=== PATIENT | female | born 1990 | race Caucasian/White ===

== ENCOUNTER 2022-03-29 15:23 | Inpatient (IN) | payer OTHER ==
[2022-03-29] MEDS ORDERED: SODIUM CHLORIDE 0.9% 1,000 ML IV STA (15:54)
[2022-03-29] MEDS ORDERED: THIAMINE 100 MG/ML 2 ML VIAL IM STA (15:58)
[2022-03-29] MEDS ORDERED: LORazepam 2 MG/ML INJ IV PRN (15:58)
[2022-03-29] MEDS: LORazepam 2 MG/ML INJ IV PRN ×7 (16:19→23:59)
[2022-03-29 16:34] LABS: HGB 11.4 gm/dL (11.4-16.0); MCH 35.2 pg (25.0-35.0); MCHC 34.6 g/dL (31.0-37.0); MCV 101.6 fL (80.0-100.0); Mean Platelet Volume 7.9; RBC 3.25 m/uL (3.80-5.40); RDW 12.3 % (11.5-15.5); WBC 5.7 k/uL (3.8-10.6)
[2022-03-29 16:45] LABS: ALT 73 U/L (4-34); AST 364 U/L (14-36); African American GFR (CKD) >90 (>60 ml/min/1.73 sqM); Albumin 3.9 g/dL (3.5-5.0); Alcohol <10 mg/dL; Alkaline Phosphatase 461 U/L (38-126); Amylase 51 U/L (30-110); Anion Gap 8 mmol/L; Blood Urea Nitrogen 10 mg/dL (7-17); Calcium 8.5 mg/dL (8.4-10.2); Carbon Dioxide 34 mmol/L (22-30); Chloride 88 mmol/L (98-107); Glucose 102 mg/dL (74-99); Lipase 230 U/L (23-300); Magnesium 1.2 mg/dL (1.6-2.3); Non-African American GFR(CKD) >90 (>60 ml/min/1.73 sqM); Phosphorus 2.6 mg/dL (2.5-4.5); Sodium 130 mmol/L (137-145); Total Protein 7.5 g/dL (6.3-8.2)
--- NOTE | 2022-03-29 16:47 | ED ---
Alcohol HPI - General Source: patient, EMS, RN notes reviewed Mode of arrival: EMS Limitations: no limitations - History of Present Illness MD Complaint: alcohol withdrawal Time Since Last Drink: 1 -: days(s) Previous Visits for Alcohol Intoxication?: No <Bindu Block - Last Filed: 03/29/22 20:30> <uDran Shook - Last Filed: 03/29/22 20:31> - General Chief Complaint: Alcohol Stated Complaint: hallucinations Time Seen by Provider: 03/29/22 15:35 - History of Present Illness Initial Comments: This is a 32-year-old female who presents to the emergency department for hallucinations. Patient was sent in from [place] for alcohol withdrawal hallucinations. She was being managed there with their alcohol withdrawal protocol, however the hallucinations continued to persist and seemed to be increasing in severity. She then became agitated, prompting her transfer to the emergency department. States that her last drink was yesterday. Nursing staff here noted her to be actively hallucinating in the examination room. When I went to examine the patient, she was intermittently seeing other people in the examination room and would occasionally think the nursing staff are her mother. She is also very agitated. Denies any fevers, chills, sore throat, cough, dyspnea, chest pain, palpitations, abdominal pain, nausea, vomiting, diarrhea, back pain, or headaches. (Bindu Block) - Related Data Home Medications Medication Instructions Recorded Confirmed Acetaminophen [Tylenol 8 Hour] 650 mg PO Q4H PRN 03/29/22 03/29/22 Calc/Mag/Zinc/Jocelynn D 1 tab PO TID PRN 03/29/22 03/29/22 Chlorpheniramine Maleate 4 mg PO Q4H PRN 03/29/22 03/29/22 [Chlor-Trimeton] Hyoscyamine Sulfate [Levsin] 0.125 mg PO QID PRN 03/29/22 03/29/22 LORazepam [Ativan] 1 - 2 mg PO Q4H 03/29/22 03/29/22 Loperamide HCl [Imodium A-D] 4 mg PO QID PRN 03/29/22 03/29/22 Multivitamins, Thera [Multivitamin 1 tab PO DAILY 03/29/22 03/29/22 (formulary)] Thiamine [Vitamin B-1] 100 mg PO DAILY 03/29/22 03/29/22 Tigan 200mg/Ml 200 mg IM Q6H PRN 03/29/22 03/29/22 cloNIDine HCL [Catapres] 0.1 mg PO Q4H PRN 03/29/22 03/29/22 ondansetron HCL [Zofran] 8 mg PO Q6H PRN 03/29/22 03/29/22 traZODone HCL [Desyrel] 50 - 150 mg PO HS PRN 03/29/22 03/29/22 Allergies Allergy/AdvReac Type Severity Reaction Status Date / Time NSAIDS (Non-Steroidal Allergy Anaphylaxis Verified 03/29/22 20:09 Anti-Inflamma Review of Systems ROS Other: All systems not noted in ROS Statement are negative. <Bindu Block - Last Filed: 03/29/22 20:30> ROS Other: All systems not noted in ROS Statement are negative. <Duran Shook - Last Filed: 03/29/22 20:31> ROS Statement: Those systems with pertinent positive or pertinent negative responses have been documented in the HPI. Past Medical History Past Medical History: Unable to Obtain History of Any Multi-Drug Resistant Organisms: None Reported Past Surgical History: Unable to Obtain Past Psychological History: Anxiety Smoking Status: Current every day smoker Past Alcohol Use History: Abuse, Daily <Bindu Block - Last Filed: 03/29/22 20:30> General Exam Limitations: no limitations General appearance: alert, in no apparent distress Head exam: Present: atraumatic, normocephalic, normal inspection Respiratory exam: Present: normal lung sounds bilaterally. Absent: respiratory distress, wheezes, rales, rhonchi, stridor Cardiovascular Exam: Present: normal rhythm, tachycardia, normal heart sounds Neurological exam: Present: alert, oriented X3, CN II-XII intact Psychiatric exam: Present: agitated. Absent: homicidal ideation, suicidal dariel ation Skin exam: Present: warm, dry, intact, normal color. Absent: rash <Bindu Block - Last Filed: 03/29/22 20:30> Course Vital Signs 03/29/22 15:32 Temperature 99.0 F Pulse Rate 140 H Respiratory 18 Rate Blood Pressure 145/119 O2 Sat by Pulse 97 Oximetry Procedures - Restraint - Face to Face Restraint Occurrence 1 Patient's Immediate Situation: Endangers self safety, Endangers others' safety, Endangers staff safety, Violent behavior Patient's Reaction to the Intervention: Angry Patient's Medical & Behavioral Condition: Awake, Agitated Need to Continue or Terminate Restraint or Seclusion: Continue Face to Face Eval of Restraint Date: 03/29/22 Face to Face Eval of Restraint Time: 20:35 <Duran Shook - Last Filed: 03/29/22 20:31> Medical Decision Making - Lab Data Result diagrams: 03/29/22 16:11 03/29/22 16:11 <Bindu Block - Last Filed: 03/29/22 20:30> - Lab Data Result diagrams: 03/29/22 16:11 03/29/22 16:11 <Duran Shook - Last Filed: 03/29/22 20:31> - Medical Decision Making This is a 32-year-old female who presents to the emergency department for alcohol withdrawals. Was pt. sent in by a medical professional or institution? @ -[facility] Did you speak to anyone other than the patient for history? @ -[facility] Did you review nursing and triage notes? @ -Yes, and I agree, it is accurate with regards to the patient's symptoms. Were old charts reviewed? @ -No Differential Diagnosis? @ -Differential Hallucinations Alcohol withdrawals, polysubstance abuse, acute psychosis, schizophrenia, sepsis, brain lesion, this is not meant to be an all-inclusive list. What testing was considered but not performed? (CT, X-rays, U/S, labs)? Why? @ -None What meds were considered but not given? Why? @ -None Did you discuss the management of the patient with other professionals? @ -Yes, Dr. Mercedes, who accepts the patient for admission. Did you reconcile home meds? @ -No Was smoking cessation discussed for >3mins.? @ -I discussed smoking cessation for greater than 3 minutes. The risk of smoking were discussed with the patient including but not limited to risks of cancer, stroke, coronary artery disease and COPD. Also discussed with patient were multiple methods of quitting smoking. Lastly we discussed the financial cost of smoking. Was critical care preformed (if so, how long)? @ -No Were there social determinants of health that impacted care today? How? (Homelessness, low income, unemployed, alcoholism, drug addiction, transportation, low edu. Level, literacy, decrease access to med. care, alf, rehab)? @ -Alcoholism Was there de-escalation of care discussed even if they declined? (Discuss DNR or withdrawal of care, Hospice)? @ -No What co-morbidities impacted this encounter? (DM, HTN, Smoking, COPD, CAD, Cancer, CVA, Hep., AIDS, mental health diagnosis, sleep apnea, morbid obesity)? @ -Alcoholism Was patient admitted / discharged? @ -Lab work obtained revealing thrombocytopenia and multiple electrolyte irregularities such as hyponatremia, hypokalemia, and hypomagnesemia. Additionally, she has significantly elevated liver enzymes. No prior values are available for comparison. She was given IV fluids, 40 mEq of K-Dur and 400 mg of magnesium oxide. CIWA protocol was initiated. Patient admitted to medicine for alcohol withdrawal hallucinations. Undiagnosed new problem with uncertain prognosis? @ -None Drug Therapy requiring intensive monitoring for toxicity (Heparin, Nitro, Insulin, Cardizem)? @ -None Were any procedures done? @ -None Diagnosis/symptom? @ -Alcohol Withdrawal Hallucinations Acute, or Chronic, or Acute on Chronic? @ -Acute Uncomplicated (without systemic symptoms) or Complicated (systemic symptoms)? @ -Complicated Side effects of treatment? @ -None Exacerbation, Progression, or Severe Exacerbation] @ -Not applicable Poses a threat to life or bodily function? @ -Yes This case was discussed in detail with the attending ED physician, Dr. East. Presentation, findings, and treatment plan discussed in detail as well. (Bindu Block) - Lab Data Lab Results 03/29/22 03/29/22 03/29/22 Range/Units 16:11 16:11 16:11 WBC 5.7 (3.8-10.6) k/uL RBC 3.25 L (3.80-5.40) m/uL Hgb 11.4 (11.4-16.0) gm/dL Hct 33.0 L (34.0-46.0) % MCV 101.6 H (80.0-100.0) fL MCH 35.2 H (25.0-35.0) pg MCHC 34.6 (31.0-37.0) g/dL RDW 12.3 (11.5-15.5) % Plt Count 78 L (150-450) k/uL MPV 7.9 Neutrophils % (Manual) 80 % Band Neuts % (Manual) 1 % Lymphocytes % (Manual) 14 % Monocytes % (Manual) 5 % Neutrophils # (Manual) 4.60 (1.3-7.7) k/uL Lymphocytes # (Manual) 0.80 L (1.0-4.8) k/uL Monocytes # (Manual) 0.29 (0-1.0) k/uL Nucleated RBCs 0 (0-0) /100 WBC Manual Slide Review Performed RBC Morphology Normal Sodium 130 L (137-145) mmol/L Potassium 3.0 L (3.5-5.1) mmol/L Chloride 88 L (98-107) mmol/L Carbon Dioxide 34 H (22-30) mmol/L Anion Gap 8 mmol/L BUN 10 (7-17) mg/dL Creatinine 0.54 (0.52-1.04) mg/dL Est GFR (CKD-EPI)AfAm >90 (>60 ml/min/1.73 sqM) Est GFR (CKD-EPI)NonAf >90 (>60 ml/min/1.73 sqM) Glucose 102 H (74-99) mg/dL Calcium 8.5 (8.4-10.2) mg/dL Phosphorus 2.6 (2.5-4.5) mg/dL Magnesium 1.2 L (1.6-2.3) mg/dL Total Bilirubin 2.0 H (0.2-1.3) mg/dL AST 364 H (14-36) U/L ALT 73 H (4-34) U/L Alkaline Phosphatase 461 H (38-126) U/L Total Protein 7.5 (6.3-8.2) g/dL Albumin 3.9 (3.5-5.0) g/dL Amylase 51 (30-110) U/L Lipase 230 (23-300) U/L Urine HCG, Qual Not Detected (Not Detectd) Serum Alcohol <10 mg/dL Disposition <Bindu Block - Last Filed: 03/29/22 20:30> <Duran Shook Filed: 03/29/22 20:31> Clinical Impression: Alcohol withdrawal hallucinosis, Hyponatremia Disposition: ADMITTED IP TO THIS HOSP Referrals: None,Stated [Primary Care Provider] - 1-2 days
[2022-03-29 17:32] LABS: Band Neutrophils % 1 %; Monocytes # (M) 0.29 k/uL (0-1.0); Neutrophils % (M) 80 %; Nucleated Red Blood Cells 0 /100 WBC (0-0); RBC Morphology Normal; Total Cells Counted 100
[2022-03-29 17:33] LABS: Platelet Count 78 k/uL (150-450)
[2022-03-29] MEDS ORDERED: MAGNESIUM OXIDE 400 MG TAB PO STA (17:45)
[2022-03-29] MEDS ORDERED: POTASSIUM CHLORIDE ER 20 MEQ TAB.ER PO STA (17:45)
[2022-03-29] MEDS ORDERED: NICOTINE 21MG/24HR PATCH TRANSDERM STA (18:02)
[2022-03-29] MEDS ORDERED: ONDANSETRON 4 MG/2 ML VIAL IVP PRN (19:25)
[2022-03-29] MEDS ORDERED: NALOXONE 0.4 MG/ML 1 ML VIAL IV PRN (19:25)
[2022-03-29] MEDS ORDERED: KETOROLAC 15 MG/ML 1 ML VIAL IVP PRN (19:25)
[2022-03-29] MEDS ORDERED: IBUPROFEN 400 MG TAB PO PRN (19:25)
[2022-03-29] MEDS ORDERED: chlordiazePOXIDE 25 MG CAP PO STA (19:56)
[2022-03-29] MEDS: MAGNESIUM SULFATE-D5W PMX 1 GM in DEXTROSE/WATER 1 100ML.BAG IVPB SCH ×2 (21:09→23:58)
[2022-03-29] MEDS ORDERED: HALOPERIDOL LACTATE 5 MG/ML 1 ML VIAL IM PRN (21:10)
[2022-03-29] MEDS ORDERED: LORazepam 2 MG/ML INJ IM STA (21:10)
[2022-03-29] MEDS ORDERED: diphenhydrAMINE 50 MG/ML 1 ML VIAL IM STA (21:10)
[2022-03-30 00:37] LABS: Amphetamine Screen,Urine Not Detected (NotDetected); Barbiturate Screen,Urine Not Detected (NotDetected); Benzodiazepines Screen,Urine Detected (NotDetected); Cocaine Screen,Urine Not Detected (NotDetected); Methadone Screen, Urine Not Detected (NotDetected); Opiate Screen,Urine Not Detected (NotDetected); Oxycodone Screen, Urine Not Detected (NotDetected); Phencyclidine Screen,Urine Not Detected (NotDetected); Tricyclic Antidepressant,Urine Not Detected (NotDetected); Urn Cannabinoid Scrn Detected (NotDetected)
[2022-03-30 00:39] LABS: Appearance,Urine Clear (Clear); Bacteria,Urine Few /hpf; Bilirubin,Urine Negative (Negative); Blood,Urine Negative (Negative); Color,Urine Light Yellow; Glucose,Urine (UA) Negative (Negative); Ketones,Urine Negative (Negative); Leukocyte Esterase,Urine Large (Negative); Nitrite,Urine Negative (Negative); Protein,Urine Negative (Negative); RBC,Urine 1 /hpf (0-5); Specific Gravity,Urine 1.005 (1.001-1.035); Squamous Epithelial Cell,Urine <1 /hpf (0-4); Urobilinogen,Urine <2.0 mg/dL (<2.0); WBC,Urine 58 /hpf (0-5)
[2022-03-30 00:57] LABS: Glucose,Whole Blood 118 mg/dL (70-110)
--- NOTE | 2022-03-30 01:56 | P.HPIM ---
History of Present Illness H&P Date: 03/29/22 Chief Complaint: hallucinations, ETOH withdrawal 32 year old female with alcohol dependance patient is a transfer from [facility], she was there for alcohol detox, last drink yesterday, however it is reported that she started having bad hallucinations, and was sent in here for further treatment . patient herself is unable to provide any meaningful history, when approached , she is in 4 point restraints , starts crying and seeing things. history obtained by talking to ED staff, and reviewing chart blood work showed macrocytosis no anemia, low platelet count most likely secondary to ETOH, unknown if has history of hepatitis , unknown if she has history of drug abuse, Low Mg, low K, low Na, elevated liver enzymes and ALP possibly secondary to alcohol abuse , liver US pending , lipase unremarkable Review of Systems ROS unobtainable: due to mental status Past Medical History Past Medical History: Unable to Obtain History of Any Multi-Drug Resistant Organisms: None Reported Past Surgical History: Unable to Obtain Past Psychological History: Anxiety Smoking Status: Current every day smoker Past Alcohol Use History: Abuse, Daily - Past Family History family Family Medical History: Unable to Obtain Medications and Allergies Home Medications Medication Instructions Recorded Confirmed Type Acetaminophen [Tylenol 8 Hour] 650 mg PO Q4H PRN 03/29/22 03/29/22 History Calc/Mag/Zinc/Jocelynn D 1 tab PO TID PRN 03/29/22 03/29/22 History Chlorpheniramine Maleate 4 mg PO Q4H PRN 03/29/22 03/29/22 History [Chlor-Trimeton] Hyoscyamine Sulfate [Levsin] 0.125 mg PO QID PRN 03/29/22 03/29/22 History LORazepam [Ativan] 1 - 2 mg PO Q4H 03/29/22 03/29/22 History Loperamide HCl [Imodium A-D] 4 mg PO QID PRN 03/29/22 03/29/22 History Multivitamins, Thera [Multivitamin 1 tab PO DAILY 03/29/22 03/29/22 History (formulary)] Thiamine [Vitamin B-1] 100 mg PO DAILY 03/29/22 03/29/22 History Tigan 200mg/Ml 200 mg IM Q6H PRN 03/29/22 03/29/22 History cloNIDine HCL [Catapres] 0.1 mg PO Q4H PRN 03/29/22 03/29/22 History ondansetron HCL [Zofran] 8 mg PO Q6H PRN 03/29/22 03/29/22 History traZODone HCL [Desyrel] 50 - 150 mg PO HS PRN 03/29/22 03/29/22 History Allergies Allergy/AdvReac Type Severity Reaction Status Date / Time NSAIDS (Non-Steroidal Allergy Anaphylaxis Verified 03/29/22 20:09 Anti-Inflamma Physical Exam Vitals: Vital Signs Temp Pulse Resp BP Pulse Ox 03/30/22 01:00 97.6 F 96 12 114/84 97 03/30/22 00:48 96 16 03/29/22 23:00 99 16 120/87 98 03/29/22 21:48 102 H 18 139/92 99 03/29/22 15:32 99.0 F 140 H 18 145/119 97 Intake and Output 03/29/22 03/29/22 03/30/22 14:59 22:59 06:59 Intake Total 1100 100 Output Total 75 225 Balance 1025 -125 Intake: Intake, IV Titration 1100 100 Amount Magnesium Sulfate-D5w Pmx 100 100 1 gm In Dextrose/Water 1 100ml.bag @ 100 mls/hr IVPB Q1H [facility] Rx#: [id number] Sodium Chloride 0.9% 1, 1000 000 ml @ 999 mls/hr IV . Q1H1M [facility] Rx#:[id number] Output: Urine 75 225 Other: # Voids 1 Weight 49.442 kg Constitutional: agitated , restless , hallucinating Eyes: Anicteric sclerae, moist conjunctiva, Pupils equal round reactive to light ENMT: NC/AT unable to examine the mouth properly Neck: resisting exam , no masses, or JVD No carotid bruits No thyromegaly Lungs: Clear to auscultation Clear to percussion Normal respiratory effort, no accessory muscle use Cardiovascular: Heart tachycardia No murmurs, gallops, or rubs No peripheral edema Abdominal: Soft Nontender, no guarding, rebound or rigidity Abdomen moving with respiration Normoactive bowel sounds Skin: Normal temperature, tone, texture, turgor Extremities: No digital cyanosis No clubbing Pedal pulses intact and symmetrical Radial pulses intact and symmetrical No calf tenderness Psychiatric: Alert, confused , agitated , hallucinating Neuro moving all 4 extremities, currently in restraints , unable to do full neuro exam due patient mental status Lymphatics: no palpable cervical or supraclavicular lymph nodes Results CBC & Chem 7: 03/29/22 16:11 03/29/22 16:11 Labs: Abnormal Lab Results - Last 24 Hours (Table) 03/29/22 03/29/22 03/30/22 Range/Units 16:11 16:11 00:08 RBC 3.25 L (3.80-5.40) m/uL Hct 33.0 L (34.0-46.0) % MCV 101.6 H (80.0-100.0) fL MCH 35.2 H (25.0-35.0) pg Plt Count 78 L (150-450) k/uL Lymphocytes # (Manual) 0.80 L (1.0-4.8) k/uL Sodium 130 L (137-145) mmol/L Potassium 3.0 L (3.5-5.1) mmol/L Chloride 88 L (98-107) mmol/L Carbon Dioxide 34 H (22-30) mmol/L Glucose 102 H (74-99) mg/dL POC Glucose (mg/dL) (70-110) mg/dL Magnesium 1.2 L (1.6-2.3) mg/dL Total Bilirubin 2.0 H (0.2-1.3) mg/dL AST 364 H (14-36) U/L ALT 73 H (4-34) U/L Alkaline Phosphatase 461 H (38-126) U/L Ur Leukocyte Esterase (Negative) Urine WBC (0-5) /hpf Urine Bacteria (None) /hpf U Benzodiazepines Scrn Detected H (NotDetected) U Marijuana (THC) Screen Detected H (NotDetected) 03/30/22 03/30/22 Range/Units 00:08 00:53 RBC (3.80-5.40) m/uL Hct (34.0-46.0) % MCV (80.0-100.0) fL MCH (25.0-35.0) pg Plt Count (150-450) k/uL Lymphocytes # (Manual) (1.0-4.8) k/uL Sodium (137-145) mmol/L Potassium (3.5-5.1) mmol/L Chloride (98-107) mmol/L Carbon Dioxide (22-30) mmol/L Glucose (74-99) mg/dL POC Glucose (mg/dL) 118 H (70-110) mg/dL Magnesium (1.6-2.3) mg/dL Total Bilirubin (0.2-1.3) mg/dL AST (14-36) U/L ALT (4-34) U/L Alkaline Phosphatase (38-126) U/L Ur Leukocyte Esterase Large H (Negative) Urine WBC 58 H (0-5) /hpf Urine Bacteria Few H (None) /hpf U Benzodiazepines Scrn (NotDetected) U Marijuana (THC) Screen (NotDetected) Assessment and Plan Assessment: hallucination and autonomic dysfunction with tachycardia , and elevated blood pressure patient clearly in DTs alcohol withdrawal syndrome supportive care IVF hydration with normal saline benzo per CIWA admission to ICU thiamine daily seizure precautions elevated liver enzymes , secondary to alcohol abuse unknown if history of drug abuse check Liver US rule out other pathology follow up liver enzymes check hepatitis panel thrombocytopenia , secondary to alcohol abuse no evidence of bleeding monitor macrocytosis with no anemia multivitamine thiamin electrolyte imbalance IVF normal saline replace Mg and K and follow up levels full code DVT PPx mechanical
[2022-03-30] MEDS: SODIUM CHLORIDE 0.9% 1,000 ML IV SCH ×2 (02:13→17:23)
[2022-03-30] MEDS: LORazepam 2 MG/ML INJ IV PRN ×3 (03:06→06:30)
[2022-03-30 04:35] LABS: Basophils % (A) 0 %; Eosinophils # (A) 0.1 k/uL (0-0.7); Eosinophils % (A) 3 %; HCT 28.2 % (34.0-46.0); Lymphocytes # (A) 0.9 k/uL (1.0-4.8); Lymphocytes % (A) 21 %; MCH 35.3 pg (25.0-35.0); MCHC 34.1 g/dL (31.0-37.0); MCV 103.4 fL (80.0-100.0); Macrocytosis Slight; Mean Platelet Volume 8.8; Monocytes # (A) 0.2 k/uL (0-1.0); Monocytes % (A) 4 %; Neutrophils % (A) 71 %; RBC 2.73 m/uL (3.80-5.40); RDW 12.4 % (11.5-15.5); WBC 4.3 k/uL (3.8-10.6)
[2022-03-30 04:48] LABS: ALT 61 U/L (4-34); AST 264 U/L (14-36); African American GFR (CKD) >90 (>60 ml/min/1.73 sqM); Alkaline Phosphatase 346 U/L (38-126); Anion Gap 2 mmol/L; Blood Urea Nitrogen 5 mg/dL (7-17); Calcium 7.8 mg/dL (8.4-10.2); Carbon Dioxide 32 mmol/L (22-30); Chloride 101 mmol/L (98-107); Glucose 84 mg/dL (74-99); Magnesium 1.9 mg/dL (1.6-2.3); Non-African American GFR(CKD) >90 (>60 ml/min/1.73 sqM); Potassium 3.4 mmol/L (3.5-5.1); Sodium 135 mmol/L (137-145); Total Bilirubin 1.7 mg/dL (0.2-1.3); Total Protein 5.9 g/dL (6.3-8.2)
[2022-03-30 04:56] LABS: HGB 9.6 gm/dL (11.4-16.0); Platelet Count 59 k/uL (150-450)
[2022-03-30] MEDS ORDERED: Potassium Replacement Protocol 1 EACH MISC MISCELLANE PRN (07:04)
[2022-03-30] MEDS ORDERED: Magnesium Replacement Protocol 1 EACH MISC MISCELLANE PRN ×2 (07:08→07:13)
--- NOTE | 2022-03-30 08:18 | US ---
EXAMINATION TYPE: US liver DATE OF EXAM: 03/30/2022 COMPARISON: NONE CLINICAL HISTORY: elevated liver enz, elevated ALP, ETOH. ETOH withdrawals TECHNIQUE: Multiple sonographic images of the right upper quadrant are obtained. FINDINGS: EXAM MEASUREMENTS: Liver Length: 20.8 cm Gallbladder Wall: 0.4 cm CBD: 0.4 cm Right Kidney: 12.2 x 4.8 x 5.8 cm [employer] REPRESENTATIVE NOTES: Unresponsive, immobile ICU pt Pancreas: ?hypoechoic lesion at tail vs. bowel= 4.1 x 2.8 x 4.4 cm Liver: Enlarged, heterogeneous, echogenic Gallbladder: Wall thickened Evidence for sonographic Cabrera's sign: No CBD: wnl Right Kidney: lower pole gassed out, no evidence of hydro IMPRESSION: 1. Hepatomegaly. 2. Limitation on the examination. A pancreatic tail cyst versus bowel loop immediately present. Addit ional workup with CT would be recommended. 3. Thickened gallbladder wall
[2022-03-30] MEDS: PANTOPRAZOLE 40 MG/10 ML VIAL IV SCH (08:45)
[2022-03-30] MEDS: DEXMEDETOMIDINE/0.9% NACL(PMX) 400 MCG in EMPTY BAG 1 BAG IV SCH ×2 (08:57→17:23)
[2022-03-30 09:43] LABS: Hepatitis A Antibody IgM Nonreactive (Nonreactive); Hepatitis B Core IgM Nonreactive (Nonreactive); Hepatitis B Surface Antigen Nonreactive (Nonreactive); Hepatitis C IgG Antibody Reactive (Nonreactive)
--- NOTE | 2022-03-30 09:59 | P.PN ---
Subjective Progress Note Date: 03/30/22 Hospital Course: 32-year-old female with history of alcohol dependence presenting from [place] [facility] with delirium tremens. Patient has been tachycardic and tachypneic, with a normal blood pressure, saturating well on room air. Laboratory workup significant for macrocytic anemia, mild hyponatremia, mild hypokalemia, transaminitis, hypomagnesemia. Patient admitted to the ICU for further management. Subjective: Patient seen and examined at bedside. No acute events overnight. Continues to remain in 2-point restraints, sitter at bedside. Patient being aggressive and combative and like to get out of the hospitalization as soon as possible. She claims that she is been through this multiple times, and does not think she needs any treatment at the moment. She denies any chest pain, shortness of breath, abdominal pain, nausea, vomiting, or bowel issues. Currently has a urinary catheter. Pertinent positives and negatives as discussed above, a complete review of sys tems was performed and all other systems are negative. Vitals Signs Reviewed. General: nontoxic, mild distress, agitated, appears at stated age Derm: warm, dry Head: atraumatic, normocephalic, symmetric Eyes: EOMI, no lid lag, anicteric sclera Mouth: no lip lesion, mucus membranes moist Cardiovascular: S1S2 reg, tachycardic, no murmur Lungs: CTA bilateral, no rhonchi, no rales , no accessory muscle use Abdominal: soft, nontender to palpation, no guarding, no appreciable organomegaly Ext: no gross muscle atrophy, no edema, no contractures Neuro: CN II-XI grossly intact, no focal neuro deficits Psych: Alert, oriented, combative Assessment and Plan: Delirium tremens Sinus tachycardia Acute alcohol withdrawal syndrome - Benzo per CIWA - Thiamine - Seizure precautions - I's consulted Transaminitis Elevated bilirubin History of prior hep C infection -Liver ultrasound showed hepatomegaly, possible pancreatic tail cyst versus problem, and thickened gallbladder wall -Hep C RNA level pending -Transaminitis likely in the setting of alcohol use Macrocytic anemia Thrombocytopenia -Likely from alcohol use Hypokalemia -Replete and monitor Mild hyponatremia - resolving, continue IV fluids Hypomagnesemia - resolved DVT ppx: Lovenox Code status: Full code Anticipated discharge place: Back to [facility] Anticipated discharge time: Pending clinical course Objective - Vital Signs Vital signs: Vital Signs Temp 97.6 F 03/30/22 01:00 Pulse 158 H 03/30/22 09:00 Resp 14 03/30/22 09:00 BP 133/82 03/30/22 09:00 Pulse Ox 96 03/30/22 09:00 FiO2 Intake & Output 03/29/22 03/30/22 03/30/22 18:59 06:59 18:59 Intake Total 1725 150.385 Output Total 655 70 Balance 1070 80.385 Weight 49.442 kg 51.3 kg Intake: Intake, IV Titration 1725 150.385 Amount Dexmedetomidine/0.9% NaCl 0.385 (Pmx) 400 mcg In Empty Bag 1 bag @ 0.2 MCG/KG/HR 2.565 mls/hr IV .Q24H [facility] Rx#:[id number] Magnesium Sulfate-D5w Pmx 200 1 gm In Dextrose/Water 1 100ml.bag @ 100 mls/hr IVPB Q1H [facility] Rx#: [id number] Sodium Chloride 0.9% 1, 525 150 000 ml @ 75 mls/hr IV . [id number] [facility] Rx#:[id number] Sodium Chloride 0.9% 1, 1000 000 ml @ 999 mls/hr IV . Q1H1M [facility] Rx#:[id number] Output: Urine 655 70 Other: Voiding Method Indwelling Catheter # Voids 1 - Labs CBC & Chem 7: 03/30/22 04:10 03/30/22 04:10 Labs: Abnormal Lab Results - Last 24 Hours (Table) 03/29/22 03/29/22 03/30/22 Range/Units 16:11 16:11 00:08 RBC 3.25 L (3.80-5.40) m/uL Hgb (11.4-16.0) gm/dL Hct 33.0 L (34.0-46.0) % MCV 101.6 H (80.0-100.0) fL MCH 35.2 H (25.0-35.0) pg Plt Count 78 L (150-450) k/uL Lymphocytes # (1.0-4.8) k/uL Lymphocytes # (Manual) 0.80 L (1.0-4.8) k/uL Sodium 130 L (137-145) mmol/L Potassium 3.0 L (3.5-5.1) mmol/L Chloride 88 L (98-107) mmol/L Carbon Dioxide 34 H (22-30) mmol/L BUN (7-17) mg/dL Creatinine (0.52-1.04) mg/dL Glucose 102 H (74-99) mg/dL POC Glucose (mg/dL) (70-110) mg/dL Calcium (8.4-10.2) mg/dL Magnesium 1.2 L (1.6-2.3) mg/dL Total Bilirubin 2.0 H (0.2-1.3) mg/dL AST 364 H (14-36) U/L ALT 73 H (4-34) U/L Alkaline Phosphatase 461 H (38-126) U/L Total Protein (6.3-8.2) g/dL Albumin (3.5-5.0) g/dL Ur Leukocyte Esterase (Negative) Urine WBC (0-5) /hpf Urine Bacteria (None) /hpf U Benzodiazepines Scrn Detected H (NotDetected) U Marijuana (THC) Screen Detected H (NotDetected) Hep C IgG Ab (Nonreactive) 03/30/22 03/30/22 03/30/22 Range/Units 00:08 00:53 04:10 RBC 2.73 L (3.80-5.40) m/uL Hgb 9.6 L D (11.4-16.0) gm/dL Hct 28.2 L (34.0-46.0) % MCV 103.4 H (80.0-100.0) fL MCH 35.3 H (25.0-35.0) pg Plt Count 59 L (150-450) k/uL Lymphocytes # 0.9 L (1.0-4.8) k/uL Lymphocytes # (Manual) (1.0-4.8) k/uL Sodium (137-145) mmol/L Potassium (3.5-5.1) mmol/L Chloride (98-107) mmol/L Carbon Dioxide (22-30) mmol/L BUN (7-17) mg/dL Creatinine (0.52-1.04) mg/dL Glucose (74-99) mg/dL POC Glucose (mg/dL) 118 H (70-110) mg/dL Calcium (8.4-10.2) mg/dL Magnesium (1.6-2.3) mg/dL Total Bilirubin (0.2-1.3) mg/dL AST (14-36) U/L ALT (4-34) U/L Alkaline Phosphatase (38-126) U/L Total Protein (6.3-8.2) g/dL Albumin (3.5-5.0) g/dL Ur Leukocyte Esterase Large H (Negative) Urine WBC 58 H (0-5) /hpf Urine Bacteria Few H (None) /hpf U Benzodiazepines Scrn (NotDetected) U Marijuana (THC) Screen (NotDetected) Hep C IgG Ab (Nonreactive) 03/30/22 03/30/22 Range/Units 04:10 04:10 RBC (3.80-5.40) m/uL Hgb (11.4-16.0) gm/dL Hct (34.0-46.0) % MCV (80.0-100.0) fL MCH (25.0-35.0) pg Plt Count (150-450) k/uL Lymphocytes # (1.0-4.8) k/uL Lymphocytes # (Manual) (1.0-4.8) k/uL Sodium 135 L (137-145) mmol/L Potassium 3.4 L (3.5-5.1) mmol/L Chloride (98-107) mmol/L Carbon Dioxide 32 H (22-30) mmol/L BUN 5 L (7-17) mg/dL Creatinine 0.41 L (0.52-1.04) mg/dL Glucose (74-99) mg/dL POC Glucose (mg/dL) (70-110) mg/dL Calcium 7.8 L (8.4-10.2) mg/dL Magnesium (1.6-2.3) mg/dL Total Bilirubin 1.7 H (0.2-1.3) mg/dL AST 264 H (14-36) U/L ALT 61 H (4-34) U/L Alkaline Phosphatase 346 H (38-126) U/L Total Protein 5.9 L (6.3-8.2) g/dL Albumin 3.0 L (3.5-5.0) g/dL Ur Leukocyte Esterase (Negative) Urine WBC (0-5) /hpf Urine Bacteria (None) /hpf U Benzodiazepines Scrn (NotDetected) U Marijuana (THC) Screen (NotDetected) Hep C IgG Ab Reactive A (Nonreactive)
[2022-03-30] MEDS: NICOTINE 21MG/24HR PATCH TRANSDERM SCH (10:08)
[2022-03-30] MEDS: THIAMINE 100 MG TAB PO SCH (10:30)
[2022-03-30] MEDS: POTASSIUM CHLORIDE 10 MEQ in WATER FOR INJECTION 1 100ML.BAG IVPB SCH ×4 (10:48→15:31)
[2022-03-30] MEDS: MAGNESIUM SULFATE-D5W PMX 1 GM in DEXTROSE/WATER 1 100ML.BAG IVPB SCH ×2 (12:36→13:56)
[2022-03-30] MEDS ORDERED: HALOPERIDOL LACTATE 5 MG/ML 1 ML VIAL IM PRN (12:39)
--- NOTE | 2022-03-30 12:40 | P.CNPUL ---
History of Present Illness Consult date: 03/30/22 Requesting physician: Aminah Mercedes Reason for consult: other (acute alcohol withdrawal, patient is in the ICU.) Chief complaint: Hallucinations and symptoms of alcohol withdrawal. History of present illness: This is a 32-year-old female who was a transfer from [facility]. She was at that facility for alcohol detoxification, however yesterday the patient developed some hallucinations, was sent to the ER for further evaluation. Patient herself is very unpleasant, and does not want to volunteer any information. However according to the chart, the patient was extremely agita russell, she had to be placed in 4. restraints. She was crying and hallucinating most of the time since admission from the ER. Considering the patient was getting extremely agitated, she was placed on Precedex, 0.4 mcg/kg/h. admitted to the ICU, as I was asked to see her on consultation. Patient is on the CIWA protocol, and she is also on Precedex drip. Labs today including CBC is basically unremarkable, electrolytes showed slightly low potassium of 3.4, renal profile is normal, liver enzymes are elevated including elevated AST of 264, ALT of 61 alkaline phosphatase of 346. However all this enzymes seem be to be trending down compared to levels from yesterday. Drug screen on this patient was positive for benzodiazepines, marijuana, and her alcohol level was less than 10. Patient also tested positive for hepatitis C IgG antibody. Review of Systems ROS unobtainable: due to mental status ( Patient is very uncooperative, and could not actually get a review of system.) Past Medical History Past Medical History: Asthma Additional Past Medical History / Comment(s): sports induced asthma History of Any Multi-Drug Resistant Organisms: None Reported Past Surgical History: No Surgical Hx Reported Additional Past Anesthesia/Blood Transfusion Reaction / Comment(s): no h/x of surgery or blood pressure Smoking Status: Current every day smoker - Past Family History Mother Family Medical History: Coronary Artery Disease (CAD), Diabetes Mellitus, Hypertension Father Family Medical History: Hypertension, Myocardial Infarction (HI) Additional Family Medical History / Comment(s): dad ETOH abuse family Family Medical History: Cancer, Hypertension Medications and Allergies Home Medications Medication Instructions Recorded Confirmed Type Acetaminophen [Tylenol 8 Hour] 650 mg PO Q4H PRN 03/29/22 03/29/22 History Calc/Mag/Zinc/Jocelynn D 1 tab PO TID PRN 03/29/22 03/29/22 History Chlorpheniramine Maleate 4 mg PO Q4H PRN 03/29/22 03/29/22 History [Chlor-Trimeton] Hyoscyamine Sulfate [Levsin] 0.125 mg PO QID PRN 03/29/22 03/29/22 History LORazepam [Ativan] 1 - 2 mg PO Q4H 03/29/22 03/29/22 History Loperamide HCl [Imodium A-D] 4 mg PO QID PRN 03/29/22 03/29/22 History Multivitamins, Thera [Multivitamin 1 tab PO DAILY 03/29/22 03/29/22 History (formulary)] Thiamine [Vitamin B-1] 100 mg PO DAILY 03/29/22 03/29/22 History Tigan 200mg/Ml 200 mg IM Q6H PRN 03/29/22 03/29/22 History cloNIDine HCL [Catapres] 0.1 mg PO Q4H PRN 03/29/22 03/29/22 History ondansetron HCL [Zofran] 8 mg PO Q6H PRN 03/29/22 03/29/22 History traZODone HCL [Desyrel] 50 - 150 mg PO HS PRN 03/29/22 03/29/22 History Allergies Allergy/AdvReac Type Severity Reaction Status Date / Time NSAIDS (Non-Steroidal Allergy Anaphylaxis Verified 03/29/22 20:09 Anti-Inflamma Physical Exam Vitals: Vital Signs Temp Pulse Pulse Resp BP Pulse Ox 03/30/22 12:00 90 18 103/63 96 03/30/22 11:00 100.3 F H 95 12 100/73 95 03/30/22 10:00 111 H 22 128/90 94 L 03/30/22 09:00 158 H 14 133/82 96 03/30/22 08:00 131 H 16 120/89 95 03/30/22 07:00 134 H 22 126/94 93 L 03/30/22 06:00 128 H 23 123/85 94 L 03/30/22 05:00 135 H 25 H 122/85 94 L 03/30/22 04:00 124 H 124 H 16 116/87 94 L 03/30/22 03:00 116 H 18 120/83 96 03/30/22 02:00 112 H 16 115/81 96 03/30/22 01:00 97.6 F 96 12 114/84 97 03/30/22 00:48 96 16 03/29/22 23:00 99 16 120/87 98 03/29/22 21:48 102 H 18 139/92 99 03/29/22 15:32 99.0 F 140 H 18 145/119 97 Intake and Output 03/29/22 03/30/22 03/30/22 22:59 06:59 14:59 Intake Total 1100 625 561.629 Output Total 75 580 205 Balance 1025 45 356.629 Intake: Intake, IV Titration 1100 625 561.629 Amount Dexmedetomidine/0.9% NaCl 11.629 (Pmx) 400 mcg In Empty Bag 1 bag @ 0.2 MCG/KG/HR 2.565 mls/hr IV .Q24H [facility] Rx#:[id number] Magnesium Sulfate-D5w Pmx 100 100 1 gm In Dextrose/Water 1 100ml.bag @ 100 mls/hr IVPB Q1H [facility] Rx#: [id number] Potassium Chloride 10 meq 100 In Water For Injection 1 100ml.bag @ 100 mls/hr IVPB Q1HR [facility] Rx#: [id number] Sodium Chloride 0.9% 1, 525 450 000 ml @ 75 mls/hr IV . [id number] [facility] Rx#:[id number] Sodium Chloride 0.9% 1, 1000 000 ml @ 999 mls/hr IV . Q1H1M [facility] Rx#:[id number] Output: Urine 75 580 205 Other: Voiding Method Indwelling Catheter # Voids 1 Weight 49.442 kg 51.3 kg 51.3 kg Physical Exam Revealed 32-year-old female, anxious, unpleasant, gets agitated very easily and is not cooperative. Patient is on room air, and she has soft restraints. Head: Atraumatic, normocephalic. HEENT:[Neck is supple.] [No neck masses.] [No thyromegaly.] [No JVD.] Chest: [Clear throughout, no crackles, no rhonchi, no wheezes.] Cardiac Exam: [Normal S1 and S2, no S3 gallop, no murmur.] Abdomen: [Soft, nontender, no megaly, no rebound, no guarding, normal bowel sounds.] Extremities: [No clubbing, no edema, no cyanosis.] Neurological Exam: Uncooperative, otherwise nonfocal. Psychiatric: Agitated, anxious mood, otherwise negative skin: No rashes. Results - Laboratory Findings CBC and BMP: 03/30/22 04:10 03/30/22 04:10 Abnormal lab findings: Abnormal Labs 03/29/22 03/29/22 03/30/22 16:11 16:11 00:08 RBC 3.25 L Hgb Hct 33.0 L MCV 101.6 H MCH 35.2 H Plt Count 78 L Lymphocytes # Lymphocytes # (Manual) 0.80 L Sodium 130 L Potassium 3.0 L Chloride 88 L Carbon Dioxide 34 H BUN Creatinine Glucose 102 H POC Glucose (mg/dL) Calcium Magnesium 1.2 L Total Bilirubin 2.0 H AST 364 H ALT 73 H Alkaline Phosphatase 461 H Total Protein Albumin Ur Leukocyte Esterase Urine WBC Urine Bacteria U Benzodiazepines Scrn Detected H U Marijuana (THC) Screen Detected H Hep C IgG Ab 03/30/22 03/30/22 03/30/22 00:08 00:53 04:10 RBC 2.73 L Hgb 9.6 L D Hct 28.2 L MCV 103.4 H MCH 35.3 H Plt Count 59 L Lymphocytes # 0.9 L Lymphocytes # (Manual) Sodium Potassium Chloride Carbon Dioxide BUN Creatinine Glucose POC Glucose (mg/dL) 118 H Calcium Magnesium Total Bilirubin AST ALT Alkaline Phosphatase Total Protein Albumin Ur Leukocyte Esterase Large H Urine WBC 58 H Urine Bacteria Few H U Benzodiazepines Scrn U Marijuana (THC) Screen Hep C IgG Ab 03/30/22 03/30/22 04:10 04:10 RBC Hgb Hct MCV MCH Plt Count Lymphocytes # Lymphocytes # (Manual) Sodium 135 L Potassium 3.4 L Chloride Carbon Dioxide 32 H BUN 5 L Creatinine 0.41 L Glucose POC Glucose (mg/dL) Calcium 7.8 L Magnesium Total Bilirubin 1.7 H AST 264 H ALT 61 H Alkaline Phosphatase 346 H Total Protein 5.9 L Albumin 3.0 L Ur Leukocyte Esterase Urine WBC Urine Bacteria U Benzodiazepines Scrn U Marijuana (THC) Screen Hep C IgG Ab Reactive A - Diagnostic Findings Additional studies: Liver ultrasound showed hepatomegaly and a pancreatic tail cyst possible Assessment and Plan Assessment: impression: Acute alcohol withdrawal acute alcoholic hepatitis history of hepatitis C chronic thrombocytopenia secondary to alcohol abuse recommendation: Continue to monitor in the ICU continue CIWA protocol continue Precedex sitter at bedside. Seizure precautions. We will continue to follow Time with Patient: Greater than 30
--- NOTE | 2022-03-30 12:51 | P.CN ---
Psychiatric Consult - . Consult date: 03/30/22 Consult:: 03/30/22 12:40 IDENTIFYING DATA: This patient is a 32-year-old female with a history of alcohol abuse, coming from [facility]. REASON FOR REFERRAL: Psychiatry was consulted for ultimately mental status and alcohol withdrawal HISTORY OF PRESENT ILLNESS: The patient presented to the hospital initially on 03/29 coming straight from [facility].) The patient has a significant history of alcohol abuse. Patient was apparently reporting an increase in severity of her hallucinations. Patient was also fairly agitated before the transfer. Patient was admitted to the ICU. Patient's nurse claims that patient has been somewhat agitated requiring restraints at times and currently in restraints. She also claims that patient has been fluctuating in terms of her mental status and alertness. Patient had a decrease in her potassium and sodium on admission, AST and ALT were elevated. Blood alcohol level was negative on admission. Urine drug screen is positive for benzodiazepines and THC. Patient was also noted to be tachycardic and her vital signs. Patient was seen lying in bed and had her eyes closed and appeared to be sleeping. Nurse helped by awaken patient today. Patient did respond to some questions by verse writer and attempted to cooperate however was fairly irritable. She kept her eyes closed the entire time during the interview. She was fairly concrete. She knew her correct name, believed that she was 22 years old. She was able to correctly state her date of . When asked about the date she states that "it's the " however is not able to give any information about the year or day or month. She claims that she is in a "[facility]" and does not know why she is here. She beleives that "someon put me here because they think that Im seeing things". she denies any depression or anxiety at this time. she denies any suicidal or homical ideations, intent or plan. Patient denies any auditory, visual hallucinations. when asked further questions about her subtance use history and other social history patient refused to answer and stopped responding to verse writer. She has very poor frustration tolerance. PAST PSYCHIATRIC HISTORY: Patient has a a history of alcohol abuse. Patient does not have any previous psychiatric admissions on the mental health unit as per the EMR. Patient was not able to give any further history. Past Medical History: Unable to Obtain History of Any Multi-Drug Resistant Organisms: None Reported Past Surgical History: Unable to Obtain Past Psychological History: Anxiety Smoking Status: Current every day smoker Past Alcohol Use History: Abuse, Daily ALLERGIES: as per EMR. CHEMICAL DEPENDENCY HISTORY: Unable to obtain. Patient does use a significant amount of alcohol and also tested positive for benzodiazepines and THC. FAMILY PSYCHIATRIC/SUBSTANCE USE HISTORY: Unable to obtain SOCIAL HISTORY: Unable to obtain MENTAL STATUS EXAM: General Appearance: Patient appears to be thin, wearing glasses, eyes closed, laying in bed, stated age is initially attempting to cooperate however is irritable. Patient appears to have fair hygiene and grooming wearing hospital gown with no eye contact. Behavior: Patient is irritable. Speech: Patient's speech is fluent and nonpressured. Brandon. Mood/Affect: Patient reports their mood is "in fine", affect is incongruent and constricted Suicidality/Homicidality: Patient denies having any suicidal or homicidal ideation intent or plan. Perceptions: Patient denies any visual hallucinations and denies any auditory hallucinations Though content/process: Brandon, poverty of content. no delusions/paranoia. Memory and concentration: AO to name only, does not know her age, location or todays date. Cannot spell "WORLD" backwards. unwilling to participate further Judgment and insight: poor and impulsive. IMPRESSIONS: Delirium likely secondary to substance withdrawal PLAN: -At this time patient DOES NOT meet criteria for inpatient psychiatric admission. -Patient DOES NOT have decision making capacity at this time and is unable to reason through and communicate/appreciate the risks, benefits and alternatives to treatment. -Delirium precautions recommended with patient including - avoiding use of narcotics and CHASER APPRENTICE sedatives, limit anticholinergic medications when possible, frequent re-orientation, minimize use of restraints, open window shades during the day and close them at night -Would recommend the following medication changes/additions: please limit the use of benadryl or any opioids as this will make delirium worst. Started scheduled dose of haldol 3 mg bid liquid for delirium/psychosis. Haldol IM prn for agitation. continue with precedex titration. -CIWA protocol with PRN Ativan for alcohol withdrawal. Continue to monitor vital signs. -Continue 1:1 sitter for safety -Cannot leave AMA at this time. Patient will need a petition and certification if attempting to leave AMA. -Communicated plan to patient's nurse -Will continue to follow along tomorrow -Please contact with any questions.
[2022-03-30] MEDS: HALOPERIDOL ORAL SOLN 10 MG/5 ML CUP PO SCH ×2 (15:31→20:37)
[2022-03-31] MEDS: DEXMEDETOMIDINE/0.9% NACL(PMX) 400 MCG in EMPTY BAG 1 BAG IV SCH (04:26)
[2022-03-31] MEDS: SODIUM CHLORIDE 0.9% 1,000 ML IV SCH ×2 (05:20→19:48)
[2022-03-31 06:29] LABS: Basophils % (A) 0 %; Eosinophils # (A) 0.1 k/uL (0-0.7); Eosinophils % (A) 3 %; HCT 27.5 % (34.0-46.0); HGB 9.4 gm/dL (11.4-16.0); Lymphocytes # (A) 0.7 k/uL (1.0-4.8); Lymphocytes % (A) 17 %; MCH 36.1 pg (25.0-35.0); MCHC 34.1 g/dL (31.0-37.0); MCV 105.8 fL (80.0-100.0); Macrocytosis Slight; Mean Platelet Volume 9.2; Monocytes # (A) 0.2 k/uL (0-1.0); Monocytes % (A) 5 %; Neutrophils # (A) 2.9 k/uL (1.3-7.7); Neutrophils % (A) 72 %
[2022-03-31 06:46] LABS: ALT 65 U/L (4-34); AST 270 U/L (14-36); African American GFR (CKD) >90 (>60 ml/min/1.73 sqM); Alkaline Phosphatase 329 U/L (38-126); Anion Gap 4 mmol/L; Blood Urea Nitrogen 4 mg/dL (7-17); Calcium 8.1 mg/dL (8.4-10.2); Carbon Dioxide 22 mmol/L (22-30); Chloride 106 mmol/L (98-107); Glucose 97 mg/dL (74-99); Magnesium 1.6 mg/dL (1.6-2.3); Non-African American GFR(CKD) >90 (>60 ml/min/1.73 sqM); Potassium 4.2 mmol/L (3.5-5.1); Sodium 132 mmol/L (137-145); Total Bilirubin 2.6 mg/dL (0.2-1.3)
[2022-03-31 06:52] LABS: Platelet Count 50 k/uL (150-450)
[2022-03-31] MEDS: MAGNESIUM SULFATE-D5W PMX 1 GM in DEXTROSE/WATER 1 100ML.BAG IVPB SCH ×2 (07:07→08:56)
[2022-03-31] MEDS: HALOPERIDOL ORAL SOLN 10 MG/5 ML CUP PO SCH ×2 (08:54→20:00)
[2022-03-31] MEDS: MULTIVITAMINS, THERA 1 EACH TAB PO SCH (08:58)
[2022-03-31] MEDS: NICOTINE 21MG/24HR PATCH TRANSDERM SCH (08:58)
[2022-03-31] MEDS: THIAMINE 100 MG TAB PO SCH (08:58)
[2022-03-31] MEDS: PANTOPRAZOLE 40 MG/10 ML VIAL IV SCH (08:59)
[2022-03-31] MEDS ORDERED: ENOXAPARIN 40 MG/0.4 ML SYRINGE SQ SCH (09:00)
--- NOTE | 2022-03-31 10:48 | P.PN ---
Subjective Progress Note Date: 03/31/22 Principal diagnosis: Acute alcohol withdrawal This is a 32-year-old female who was a transfer from [facility]. She was at that facility for alcohol detoxification, however yesterday the patient developed some hallucinations, was sent to the ER for further evaluation. Patient herself is very unpleasant, and does not want to volunteer any information. However according to the chart, the patient was extremely agitated, she had to be placed in 4. restraints. She was crying and hallucinating most of the time since admission from the ER. Considering the patient was getting extremely agitated, she was placed on Precedex, 0.4 mcg/kg/h. admitted to the ICU, as I was asked to see her on consultation. Patient is on the CIWA protocol, and she is also on Precedex drip. Labs today including CBC is basically unremarkable, electrolytes showed slightly low potassium of 3.4, renal profile is normal, liver enzymes are elevated including elevated AST of 264, ALT of 61 alkaline phosphatase of 346. However all this enzymes seem be to be trending down compared to levels from yesterday. Drug screen on this patient was positive for benzodiazepines, marijuana, and her alcohol level was less than 10. Patient also tested positive for hepatitis C IgG antibody. Reevaluated today on 03/31/22, patient remains in the ICU, she is now off the Precedex drip, she remains on the CIWA protocol, she was seen by psychiatry, and the patient did not meet criteria for psychiatric admission however the recommendation was to continue Haldol for agitation and to continue the CIWA protocol. Today the patient seems to be quite calm, not in any distress, she is on room air. And I plan to transfer the patient out of the ICU to a regular medical floor and with a sitter. CBC today is basically unremarkable. Electrolytes are basically normal renal profile is normal Objective - Vital Signs Vital signs: Vital Signs Temp 99.6 F 03/31/22 08:00 Pulse 87 03/31/22 10:00 Resp 10 L 03/31/22 10:00 BP 137/78 03/31/22 10:00 Pulse Ox 97 03/31/22 10:00 FiO2 Intake & Output 03/30/22 03/31/22 03/31/22 18:59 06:59 18:59 Intake Total 7686.240 3705.406 328.709 Output Total 430 980 675 Balance 987.590 30.406 -346.291 Weight 51.3 kg 55.1 kg Intake: IV 825 325 Magnesium Sulfate-D5w Pmx 100 1 gm In Dextrose/Water 1 100ml.bag @ 100 mls/hr IVPB Q1H [facility] Rx#: [id number] Sodium Chloride 0.9% 1, 825 225 000 ml @ 75 mls/hr IV . [id number] [facility] Rx#:[id number] Intake, IV Titration 1417.590 185.406 3.709 Amount Dexmedetomidine/0.9% NaCl 67.590 110.406 3.709 (Pmx) 400 mcg In Empty Bag 1 bag @ 0.2 MCG/KG/HR 2.565 mls/hr IV .Q24H [facility] Rx#:[id number] Magnesium Sulfate-D5w Pmx 200 1 gm In Dextrose/Water 1 100ml.bag @ 100 mls/hr IVPB Q1H [facility] Rx#: [id number] Potassium Chloride 10 meq 400 In Water For Injection 1 100ml.bag @ 100 mls/hr IVPB Q1HR [facility] Rx#: [id number] Sodium Chloride 0.9% 1, 750 75 000 ml @ 75 mls/hr IV . [id number] [facility] Rx#:[id number] Output: Urine 430 980 675 Other: Voiding Method Indwelling Catheter Indwelling Catheter Indwelling Catheter - Exam Physical Exam: Revealed a 32-year-old female in no distress. HEENT:[Neck is supple.] [No neck masses.] [No thyromegaly.] [No JVD.] Chest: [Clear throughout, no crackles, no rhonchi, no wheezes.] Cardiac Exam: [Normal S1 and S2, no S3 gallop, no murmur.] Abdomen: [Soft, nontender, no megaly, no rebound, no guarding, normal bowel sounds.] Extremities: [No clubbing, no edema, no cyanosis.] Neurological Exam: [No focal neurologic deficit.] Alert and oriented 3. Psychiatric: Normal mood affect and normal mental status examination. Skin: No rash - Labs CBC & Chem 7: 03/31/22 06:05 03/31/22 06:05 Labs: Abnormal Lab Results - Last 24 Hours (Table) 03/31/22 03/31/22 Range/Units 06:05 06:05 RBC 2.60 L (3.80-5.40) m/uL Hgb 9.4 L (11.4-16.0) gm/dL Hct 27.5 L (34.0-46.0) % MCV 105.8 H (80.0-100.0) fL MCH 36.1 H (25.0-35.0) pg Plt Count 50 L (150-450) k/uL Lymphocytes # 0.7 L (1.0-4.8) k/uL Sodium 132 L (137-145) mmol/L BUN 4 L (7-17) mg/dL Creatinine 0.43 L (0.52-1.04) mg/dL Calcium 8.1 L (8.4-10.2) mg/dL Total Bilirubin 2.6 H (0.2-1.3) mg/dL AST 270 H (14-36) U/L ALT 65 H (4-34) U/L Alkaline Phosphatase 329 H (38-126) U/L Total Protein 6.0 L (6.3-8.2) g/dL Albumin 3.0 L (3.5-5.0) g/dL Microbiology - Last 24 Hours (Table) 03/30/22 00:08 Urine Culture - Preliminary Urine,Voided Assessment and Plan Assessment: impression: Acute alcohol withdrawal acute alcoholic hepatitis history of hepatitis C chronic thrombocytopenia secondary to alcohol abuse recommendation: Transfer patient out of the ICU to regular medical floor Precedex has been discontinued Continue CIWA protocol sitter at bedside. Continue Haldol as ordered by psychiatry Continue seizure precautions Will recommend transfer out of ICU to a regular medical floor and have a sitter at bedside Time with Patient: Less than 30
--- NOTE | 2022-03-31 12:12 | P.PN ---
Subjective Progress Note Date: 03/31/22 Hospital Course: 32-year-old female with history of alcohol dependence presenting from [facility] with delirium tremens. Patient has been tachycardic and tachypneic, with a normal blood pressure, saturating well on room air. Laboratory workup significant for macrocytic anemia, mild hyponatremia, mild hypokalemia, transaminitis, hypomagnesemia. Patient admitted to the ICU for further management. Mental status improved. Psychiatry consulted. Patient currently on scheduled Haldol, and as needed benzo. Precedex discontinued. Plan for transfer out of the ICU to medical floor. Subjective: Patient seen and examined at bedside. No acute events overnight. Patient den ies any chest pain, shortness of breath, abdominal pain, nausea, vomiting, diarrhea, constipation. Continues to have a urinary catheter. Pertinent positives and negatives as discussed above, a complete review of systems was performed and all other systems are negative. Vitals Signs Reviewed. General: nontoxic, no distress, appears at stated age Derm: warm, dry Head: atraumatic, normocephalic, symmetric Eyes: EOMI, no lid lag, anicteric sclera Mouth: no lip lesion, mucus membranes moist Cardiovascular: S1S2 reg, no murmur, no edema Lungs: CTA bilateral, no rhonchi, no rales , no accessory muscle use Abdominal: soft, nontender to palpation, no guarding, no appreciable organomegaly Ext: no gross muscle atrophy, no edema, no contractures Neuro: CN II-XI grossly intact, no focal neuro deficits Psych: Alert, oriented, cooperative Assessment and Plan: Delirium tremens Acute alcohol withdrawal syndrome - Benzo per CIWA - Thiamine - Seizure precautions -Currently remains in the ICU, transfer to medicine floor pending - On scheduled Haldol per psychiatry Transaminitis Elevated bilirubin History of prior hep C infection -Liver ultrasound showed hepatomegaly, possible pancreatic tail cyst versus problem, and thickened gallbladder wall -Hep C RNA level pending -Transaminitis likely in the setting of alcohol use Macrocytic anemia Thrombocytopenia -Likely from alcohol use Hypokalemia -Resolved Mild hyponatremia - resolving, continue IV fluids Hypomagnesemia - resolved DVT ppx: SCDs given thrombocytopenia Code status: Full code Anticipated discharge place: Back to [facility] Anticipated discharge time: Pending clinical course Objective - Vital Signs Vital signs: Vital Signs Temp 99.6 F 03/31/22 08:00 Pulse 87 03/31/22 10:00 Resp 10 L 03/31/22 10:00 BP 137/78 03/31/22 10:00 Pulse Ox 97 03/31/22 10:00 FiO2 Intake & Output 03/30/22 03/31/22 03/31/22 18:59 06:59 18:59 Intake Total 0888.750 1973.406 328.709 Output Total 430 980 675 Balance 987.590 30.406 -346.291 Weight 51.3 kg 55.1 kg Intake: IV 825 325 Magnesium Sulfate-D5w Pmx 100 1 gm In Dextrose/Water 1 100ml.bag @ 100 mls/hr IVPB Q1H [facility] Rx#: [id number] Sodium Chloride 0.9% 1, 825 225 000 ml @ 75 mls/hr IV . [id number] [facility] Rx#:[id number] Intake, IV Titration 1417.590 185.406 3.709 Amount Dexmedetomidine/0.9% NaCl 67.590 110.406 3.709 (Pmx) 400 mcg In Empty Bag 1 bag @ 0.2 MCG/KG/HR 2.565 mls/hr IV .Q24H [facility] Rx#:[id number] Magnesium Sulfate-D5w Pmx 200 1 gm In Dextrose/Water 1 100ml.bag @ 100 mls/hr IVPB Q1H [facility] Rx#: [id number] Potassium Chloride 10 meq 400 In Water For Injection 1 100ml.bag @ 100 mls/hr IVPB Q1HR [facility] Rx#: [id number] Sodium Chloride 0.9% 1, 750 75 000 ml @ 75 mls/hr IV . [id number] [facility] Rx#:[id number] Output: Urine 430 980 675 Other: Voiding Method Indwelling Catheter Indwelling Catheter Indwelling Catheter - Labs CBC & Chem 7: 03/31/22 06:05 03/31/22 06:05 Labs: Abnormal Lab Results - Last 24 Hours (Table) 03/31/22 03/31/22 Range/Units 06:05 06:05 RBC 2.60 L (3.80-5.40) m/uL Hgb 9.4 L (11.4-16.0) gm/dL Hct 27.5 L (34.0-46.0) % MCV 105.8 H (80.0-100.0) fL MCH 36.1 H (25.0-35.0) pg Plt Count 50 L (150-450) k/uL Lymphocytes # 0.7 L (1.0-4.8) k/uL Sodium 132 L (137-145) mmol/L BUN 4 L (7-17) mg/dL Creatinine 0.43 L (0.52-1.04) mg/dL Calcium 8.1 L (8.4-10.2) mg/dL Total Bilirubin 2.6 H (0.2-1.3) mg/dL AST 270 H (14-36) U/L ALT 65 H (4-34) U/L Alkaline Phosphatase 329 H (38-126) U/L Total Protein 6.0 L (6.3-8.2) g/dL Albumin 3.0 L (3.5-5.0) g/dL Microbiology - Last 24 Hours (Table) 03/30/22 00:08 Urine Culture - Preliminary Urine,Voided
[2022-03-31] MEDS: LORazepam 2 MG/ML INJ IV PRN ×2 (16:45→19:55)
--- NOTE | 2022-03-31 20:53 | P.PN ---
Progress Note - Text Progress Note Date: 03/31/22 Interval History: She was slightly anxious but did not otherwise display symptoms of alcohol withdrawal. She was taken off the Precedex this morning. BP improving with elevated heart rate. CIWA score was 9 and she was given Ativan accordingly. Nursing staff denies any agitation or hallucinations recently. Patient was seen bedside this evening. She is A&Ox4. She was able to recall further about her alcohol use. She states that she had been drinking a pint every day prior to going to [place]. She says that she was given unknown medications well at [place] during which time she was not feeling well and needed to be hospitalized. She reports increased insight into her substance use and is tearful when discussing her current status. She reports being scared that her alcohol use has resulted in her being in ICU. She says that this is the worst she has been and hopes for sobriety. She is future oriented and states that she wants to be there for her daughter. She says that [facility] [place] [facility] and [facility] were rehabs that she has attended in the past but has not found them to be helpful. She would like to attend intensive outpatient treatment for substance use. At this time patient denies any suicidal or homicidal ideations, intent or plan. Patient denies any auditory, visual hallucinations and denies any paranoia or delusions. Patient denies any side effects from the medications and has been compliant with meds. Mental Status Exam: General Appearance: Patient appears to be stated age is alert, directable, and cooperative. Behavior: Patient is calmly seated with mild restlessness Speech: Patient's speech is fluent and nonpressured. Mood/Affect: Mood is sad, affect is congruent Suicidality/Homicidality: Patient denies having any suicidal or homicidal ideation intent or plan. Perceptions: Patient denies any visual hallucinations and denies any auditory hallucinations Though content/process: There is no evidence of any delusional thought content and thought process is linear and goal-directed. Memory and concentration: AOX3, grossly intact for the purposes of this session Judgment and insight: Improving mildly Assessment Alcohol use disorder, severe, in withdrawal Delirium - resolved Plan: -At this time patient DOES NOT meet criteria for inpatient psychiatric admission. Patient DOES NOT need a petition and certification -Patient DOES have decision making capacity at this time and is able to reason through and communicate/appreciate the risks, benefits and alternatives to treatment. -Delirium precautions recommended with patient including - avoiding use of narcotics and A/C TECH sedatives, limit anticholinergic medications when possible, frequent re-orientation, minimize use of restraints, open window shades during the day and close them at night -Would recommend the following medication changes/additions: Stop haldol 3 mg bid since no longer delirious. Continue Haldol 3 mg q6H PRN for agitation Start Campral 333 mg TID for alcohol abstinence. Discussed alternatives but given liver function and reportedly being on Suboxone outpatient, this is likely to be most helpful -CIWA protocol with PRN Ativan for alcohol withdrawal. Continue to monitor vital signs. -Discontinue 1:1 sitter for safety -Communicated plan to patient's nurse -Will continue to follow along tomorrow and possibly sign off tomorrow -Please contact with any questions.
[2022-03-31] MEDS: ACAMPROSATE CALCIUM 333 MG TABLET.DR PO SCH (21:22)
[2022-04-01 06:28] LABS: Basophils % (A) 0 %; Eosinophils # (A) 0.1 k/uL (0-0.7); Eosinophils % (A) 2 %; HCT 29.8 % (34.0-46.0); HGB 9.9 gm/dL (11.4-16.0); Lymphocytes # (A) 0.9 k/uL (1.0-4.8); Lymphocytes % (A) 23 %; MCH 35.2 pg (25.0-35.0); MCHC 33.3 g/dL (31.0-37.0); MCV 105.8 fL (80.0-100.0); Macrocytosis Slight; Mean Platelet Volume 8.5; Monocytes # (A) 0.3 k/uL (0-1.0); Monocytes % (A) 8 %; Neutrophils # (A) 2.3 k/uL (1.3-7.7); Neutrophils % (A) 63 %; RBC 2.82 m/uL (3.80-5.40); RDW 12.3 % (11.5-15.5); WBC 3.7 k/uL (3.8-10.6)
[2022-04-01 06:35] LABS: Platelet Count 95 k/uL (150-450)
[2022-04-01 06:40] LABS: African American GFR (CKD) >90 (>60 ml/min/1.73 sqM); Anion Gap 7 mmol/L; Blood Urea Nitrogen 3 mg/dL (7-17); Calcium 8.2 mg/dL (8.4-10.2); Carbon Dioxide 23 mmol/L (22-30); Chloride 106 mmol/L (98-107); Glucose 94 mg/dL (74-99); Magnesium 1.6 mg/dL (1.6-2.3); Non-African American GFR(CKD) >90 (>60 ml/min/1.73 sqM); Potassium 3.4 mmol/L (3.5-5.1); Sodium 136 mmol/L (137-145)
[2022-04-01] MEDS ORDERED: POTASSIUM CHLORIDE ER 20 MEQ TAB.ER PO STA (07:53)
[2022-04-01] MEDS ORDERED: MAGNESIUM OXIDE 400 MG TAB PO STA (07:53)
[2022-04-01] MEDS: PANTOPRAZOLE 40 MG/10 ML VIAL IV SCH (08:51)
[2022-04-01] MEDS: NICOTINE 21MG/24HR PATCH TRANSDERM SCH (08:53)
[2022-04-01] MEDS: SODIUM CHLORIDE 0.9% 1,000 ML IV SCH ×2 (08:53→21:17)
[2022-04-01] MEDS: THIAMINE 100 MG TAB PO SCH (08:56)
[2022-04-01] MEDS: MULTIVITAMINS, THERA 1 EACH TAB PO SCH (08:56)
[2022-04-01] MEDS: ACAMPROSATE CALCIUM 333 MG TABLET.DR PO SCH ×3 (08:57→21:01)
[2022-04-01] MEDS: LORazepam 2 MG/ML INJ IV PRN ×5 (09:13→21:08)
--- NOTE | 2022-04-01 10:23 | P.PN ---
Subjective Progress Note Date: 04/01/22 Principal diagnosis: Acute alcohol withdrawal This is a 32-year-old female who was a transfer from [facility]. She was at that facility for alcohol detoxification, however yesterday the patient developed some hallucinations, was sent to the ER for further evaluation. Patient herself is very unpleasant, and does not want to volunteer any information. However according to the chart, the patient was extremely agitated, she had to be placed in 4. restraints. She was crying and hallucinating most of the time since admission from the ER. Considering the patient was getting extremely agitated, she was placed on Precedex, 0.4 mcg/kg/h. admitted to the ICU, as I was asked to see her on consultation. Patient is on the CIWA protocol, and she is also on Precedex drip. Labs today including CBC is basically unremarkable, electrolytes showed slightly low potassium of 3.4, renal profile is normal, liver enzymes are elevated including elevated AST of 264, ALT of 61 alkaline phosphatase of 346. However all this enzymes seem be to be trending down compared to levels from yesterday. Drug screen on this patient was positive for benzodiazepines, marijuana, and her alcohol level was less than 10. Patient also tested positive for hepatitis C IgG antibody. Reevaluated today on 03/31/22, patient remains in the ICU, she is now off the Precedex drip, she remains on the CIWA protocol, she was seen by psychiatry, and the patient did not meet criteria for psychiatric admission however the recommendation was to continue Haldol for agitation and to continue the CIWA protocol. Today the patient seems to be quite calm, not in any distress, she is on room air. And I plan to transfer the patient out of the ICU to a regular medical floor and with a sitter. CBC today is basically unremarkable. Electrolytes are basically normal renal profile is normal Patient was reevaluated today on 04/01/22, patient is doing great, she is on room air, asymptomatic, not in any distress, patient has no more episodes of agitations or delirium. Patient was seen by psychiatry, and made a few recommendations on her medications. pulmonary/critical care, patient could be transferred to the regular medical floor, and we'll see the patient on as-needed basis. Objective - Vital Signs Vital signs: Vital Signs Temp 98.5 F 04/01/22 08:46 Pulse 119 H 04/01/22 08:46 Resp 18 04/01/22 08:46 BP 138/88 04/01/22 08:46 Pulse Ox 100 04/01/22 08:46 FiO2 Intake & Output 03/31/22 04/01/22 04/01/22 18:59 06:59 18:59 Intake Total 628.709 Output Total 1075 Balance -446.291 Weight 50.8 kg Intake: IV 625 Magnesium Sulfate-D5w Pmx 100 1 gm In Dextrose/Water 1 100ml.bag @ 100 mls/hr IVPB Q1H [facility] Rx#: [id number] Sodium Chloride 0.9% 1, 525 000 ml @ 75 mls/hr IV . [id number] [facility] Rx#:[id number] Intake, IV Titration 3.709 Amount Dexmedetomidine/0.9% NaCl 3.709 (Pmx) 400 mcg In Empty Bag 1 bag @ 0.2 MCG/KG/HR 2.565 mls/hr IV .Q24H [facility] Rx#:[id number] Output: Urine 1075 Other: Voiding Method Toilet Toilet # Voids 2 5 - Exam Physical Exam: Revealed a 32-year-old female in no distress. HEENT:[Neck is supple.] [No neck masses.] [No thyromegaly.] [No JVD.] Chest: [Clear throughout, no crackles, no rhonchi, no wheezes.] Cardiac Exam: [Normal S1 and S2, no S3 gallop, no murmur.] Abdomen: [Soft, nontender, no megaly, no rebound, no guarding, normal bowel sounds.] Extremities: [No clubbing, no edema, no cyanosis.] Neurological Exam: [No focal neurologic deficit.] Alert and oriented 3. Psychiatric: Normal mood affect and normal mental status examination. Skin: No rash - Labs CBC & Chem 7: 04/01/22 05:27 04/01/22 05:27 Labs: Abnormal Lab Results - Last 24 Hours (Table) 04/01/22 04/01/22 Range/Units 05:27 05:27 WBC 3.7 L (3.8-10.6) k/uL RBC 2.82 L (3.80-5.40) m/uL Hgb 9.9 L (11.4-16.0) gm/dL Hct 29.8 L (34.0-46.0) % MCV 105.8 H (80.0-100.0) fL MCH 35.2 H (25.0-35.0) pg Plt Count 95 L D (150-450) k/uL Lymphocytes # 0.9 L (1.0-4.8) k/uL Sodium 136 L (137-145) mmol/L Potassium 3.4 L (3.5-5.1) mmol/L BUN 3 L (7-17) mg/dL Creatinine 0.38 L (0.52-1.04) mg/dL Calcium 8.2 L (8.4-10.2) mg/dL Microbiology - Last 24 Hours (Table) 03/30/22 00:08 Urine Culture - Preliminary Urine,Voided Gram Neg Bacilli Assessment and Plan Assessment: impression: Acute alcohol withdrawal acute alcoholic hepatitis history of hepatitis C chronic thrombocytopenia secondary to alcohol abuse recommendation: Transfer patient out of the ICU to regular medical floor Continue CIWA protocol medications as ordered by psychiatry on the case. Continue seizure precautions Will transfer the patient out of the ICU to regular medical floor, and from our perspective will clear for discharge if cleared by other consultants. We will see on when necessary basis. Time with Patient: Less than 30
--- NOTE | 2022-04-01 10:38 | P.PN ---
Subjective Progress Note Date: 04/01/22 Hospital Course: 32-year-old female with history of alcohol dependence presenting from [facility] rehab with delirium tremens. Patient has been tachycardic and tachypneic, with a normal blood pressure, saturating well on room air. Laboratory workup significant for macrocytic anemia, mild hyponatremia, mild hypokalemia, transaminitis, hypomagnesemia. Patient admitted to the ICU for further management. Mental status improved. Psychiatry consulted. Patient currently on scheduled Haldol, and as needed benzo. Precedex discontinued. Plan for transfer out of the ICU to medical floor. Subjective: Patient seen and examined at bedside. No acute events overnight. Patient denies any chest pain, shortness of breath, abdominal pain, nausea, vomiting, diarrhea, constipation. Patient adamant about leaving for home. However, manager social services not available today to provide her with resources regards to substance abuse rehab. She received Ativan yesterday evening, and this morning. Pertinent positives and negatives as discussed above, a complete review of systems was performed and all other systems are negative. Vitals Signs Reviewed. General: nontoxic, no distress, appears at stated age Derm: warm, dry Head: atraumatic, normocephalic, symmetric Eyes: EOMI, no lid lag, anicteric sclera Mouth: no lip lesion, mucus membranes moist Cardiovascular: S1S2 reg, tachycardic, no murmur, no edema Lungs: CTA bilateral, no rhonchi, no rales , no accessory muscle use Abdominal: soft, nontender to palpation, no guarding, no appreciable organomegaly Ext: no gross muscle atrophy, no edema, no contractures Neuro: CN II-XI grossly intact, no focal neuro deficits Psych: Alert, oriented, cooperative Assessment and Plan: Delirium tremens - resolved Acute alcohol withdrawal syndrome - resolving - Benzo per CIWA - Thiamine - Seizure precautions - Currently remains in the ICU, transfer to medicine floor pending - As needed Haldol for psychiatry - Would prefer to have patient stay one more night given continued use of ativan and no manager social services available to Transaminitis Elevated bilirubin History of prior hep C infection -Liver ultrasound showed hepatomegaly, possible pancreatic tail cyst versus problem, and thickened gallbladder wall -Hep C RNA level pending -Transaminitis likely in the setting of alcohol use Macrocytic anemia Thrombocytopenia -Likely from alcohol use Hypokalemia Hypomagnesemia -Replete and monitor Mild hyponatremia - resolving, continue IV fluids DVT ppx: Patient ambulatory Code status: Full code Anticipated discharge place: Home versus [place] Anticipated discharge time: Likely tomorrow Objective - Vital Signs Vital signs: Vital Signs Temp 98.5 F 04/01/22 08:46 Pulse 119 H 04/01/22 08:46 Resp 18 04/01/22 08:46 BP 138/88 04/01/22 08:46 Pulse Ox 100 04/01/22 08:46 FiO2 Intake & Output 03/31/22 04/01/22 04/01/22 18:59 06:59 18:59 Intake Total 628.709 Output Total 1075 Balance -446.291 Weight 50.8 kg Intake: IV 625 Magnesium Sulfate-D5w Pmx 100 1 gm In Dextrose/Water 1 100ml.bag @ 100 mls/hr IVPB Q1H [facility] Rx#: [id number] Sodium Chloride 0.9% 1, 525 000 ml @ 75 mls/hr IV . [id number] [facility] Rx#:[id number] Intake, IV Titration 3.709 Amount Dexmedetomidine/0.9% NaCl 3.709 (Pmx) 400 mcg In Empty Bag 1 bag @ 0.2 MCG/KG/HR 2.565 mls/hr IV .Q24H [facility] Rx#:[id number] Output: Urine 1075 Other: Voiding Method Toilet Toilet # Voids 2 5 - Labs CBC & Chem 7: 04/01/22 05:27 04/01/22 05:27 Labs: Abnormal Lab Results - Last 24 Hours (Table) 04/01/22 04/01/22 Range/Units 05:27 05:27 WBC 3.7 L (3.8-10.6) k/uL RBC 2.82 L (3.80-5.40) m/uL Hgb 9.9 L (11.4-16.0) gm/dL Hct 29.8 L (34.0-46.0) % MCV 105.8 H (80.0-100.0) fL MCH 35.2 H (25.0-35.0) pg Plt Count 95 L D (150-450) k/uL Lymphocytes # 0.9 L (1.0-4.8) k/uL Sodium 136 L (137-145) mmol/L Potassium 3.4 L (3.5-5.1) mmol/L BUN 3 L (7-17) mg/dL Creatinine 0.38 L (0.52-1.04) mg/dL Calcium 8.2 L (8.4-10.2) mg/dL Microbiology - Last 24 Hours (Table) 03/30/22 00:08 Urine Culture - Preliminary Urine,Voided Gram Neg Bacilli
--- NOTE | 2022-04-01 16:46 | P.PN ---
Progress Note - Text Progress Note Date: 04/01/22 Interval History: She was seen bedside this afternoon. She continues to report being anxious a bout returning home. She has received a total of Ativan 5 mg today. Patient is in Day 4 of alcohol withdrawal. S Nursing staff denies any agitation or hallucinations recently. Patient was seen bedside this evening. She is A&Ox4. She continues to want to go to intensive outpatient treatment for substance use and would like to be sober of alcohol. She states that her mood has been "all right ". She reports adequate sleep although she has had long-term trouble sleeping. She reports good appetite and energy. At this time patient denies any suicidal or homicidal ideations, intent or plan. Patient denies any auditory, visual hallucinations and denies any paranoia or delusions. Patient denies any side effects from the medications and has been compliant with meds. Mental Status Exam: General Appearance: Patient appears to be stated age is alert, directable, and cooperative. Behavior: Patient is calmly seated with mild restlessness Speech: Patient's speech is fluent and nonpressured. Mood/Affect: Mood is anxious, affect is congruent Suicidality/Homicidality: Patient denies having any suicidal or homicidal ideation intent or plan. Perceptions: Patient denies any visual hallucinations and denies any auditory hallucinations Though content/process: There is no evidence of any delusional thought content and thought process is linear and goal-directed. Memory and concentration: AOX3, grossly intact for the purposes of this session Judgment and insight: Improving mildly Assessment Alcohol use disorder, severe, in withdrawal Delirium - resolved Plan: -At this time patient DOES NOT meet criteria for inpatient psychiatric admission. Patient DOES NOT need a petition and certification -Patient DOES have decision making capacity at this time and is able to reason through and communicate/appreciate the risks, benefits and alternatives to treatment. -Would recommend the following medication changes/additions: Stop Haldol 3 mg q6H PRN for agitation Increase Campral to 333 mg TID for alcohol abstinence. Discussed alternatives but given liver function and reportedly being on Suboxone outpatient, this is likely to be most helpful -CIWA protocol with PRN Ativan for alcohol withdrawal. Continue to monitor vital signs. Day 4 of withdrawal. Highest CIWA was 13 today. Agree with another day of monitoring -MVA and thiamine -patch worker to provide patient substance use treatment resources including AA/NA meetings in the community. -patch worker to provide patient with access line number to call for inpatient substance rehab and intensive outpatient rehab -Communicated plan to patient's nurse -Psychiatry signing off -Please contact with any questions.
[2022-04-01 21:15] VITALS: TEMP 98.7
[2022-04-02] MEDS: LORazepam 2 MG/ML INJ IV PRN (01:37)
[2022-04-02 01:43] VITALS: RESP 18
[2022-04-02 07:20] LABS: Basophils % (A) 0 %; Eosinophils # (A) 0.1 k/uL (0-0.7); Eosinophils % (A) 3 %; HGB 9.9 gm/dL (11.4-16.0); Lymphocytes % (A) 23 %; MCH 35.3 pg (25.0-35.0); MCHC 34.1 g/dL (31.0-37.0); MCV 103.5 fL (80.0-100.0); Macrocytosis Slight; Mean Platelet Volume 8.1; Monocytes # (A) 0.5 k/uL (0-1.0); Monocytes % (A) 12 %; Neutrophils # (A) 2.5 k/uL (1.3-7.7); Neutrophils % (A) 58 %; RDW 12.3 % (11.5-15.5); WBC 4.2 k/uL (3.8-10.6)
[2022-04-02 07:36] LABS: Platelet Count 179 k/uL (150-450)
[2022-04-02 07:38] LABS: African American GFR (CKD) >90 (>60 ml/min/1.73 sqM); Anion Gap 4 mmol/L; Blood Urea Nitrogen 3 mg/dL (7-17); Calcium 8.7 mg/dL (8.4-10.2); Carbon Dioxide 27 mmol/L (22-30); Chloride 104 mmol/L (98-107); Glucose 90 mg/dL (74-99); Magnesium 1.5 mg/dL (1.6-2.3); Non-African American GFR(CKD) >90 (>60 ml/min/1.73 sqM); Potassium 4.1 mmol/L (3.5-5.1); Sodium 135 mmol/L (137-145)
[2022-04-02 08:52] VITALS: BP 118/89; PULSE 120
[2022-04-02] MEDS: ACAMPROSATE CALCIUM 333 MG TABLET.DR PO SCH (08:54)
[2022-04-02] MEDS: PANTOPRAZOLE 40 MG/10 ML VIAL IV SCH (08:54)
[2022-04-02] MEDS: MULTIVITAMINS, THERA 1 EACH TAB PO SCH (08:55)
[2022-04-02] MEDS: THIAMINE 100 MG TAB PO SCH (08:55)
[2022-04-02] MEDS: NICOTINE 21MG/24HR PATCH TRANSDERM SCH (08:55)
[2022-04-02] MEDS: SODIUM CHLORIDE 0.9% 1,000 ML IV SCH (09:27)
[2022-04-02] MEDS ORDERED: MAGNESIUM OXIDE 400 MG TAB PO STA (09:33)
--- NOTE | 2022-04-02 10:13 | P.PN ---
Subjective Progress Note Date: 04/02/22 Principal diagnosis: Acute alcohol withdrawal This is a 32-year-old female who was a transfer from [facility]. She was at that facility for alcohol detoxification, however yesterday the patient developed some hallucinations, was sent to the ER for further evaluation. Patient herself is very unpleasant, and does not want to volunteer any information. However according to the chart, the patient was extremely agitated, she had to be placed in 4. restraints. She was crying and hallucinating most of the time since admission from the ER. Considering the patient was getting extremely agitated, she was placed on Precedex, 0.4 mcg/kg/h. admitted to the ICU, as I was asked to see her on consultation. Patient is on the CIWA protocol, and she is also on Precedex drip. Labs today including CBC is basically unremarkable, electrolytes showed slightly low potassium of 3.4, renal profile is normal, liver enzymes are elevated including elevated AST of 264, ALT of 61 alkaline phosphatase of 346. However all this enzymes seem be to be trending down compared to levels from yesterday. Drug screen on this patient was positive for benzodiazepines, marijuana, and her alcohol level was less than 10. Patient also tested positive for hepatitis C IgG antibody. Reevaluated today on 03/31/22, patient remains in the ICU, she is now off the Precedex drip, she remains on the CIWA protocol, she was seen by psychiatry, and the patient did not meet criteria for psychiatric admission however the recommendation was to continue Haldol for agitation and to continue the CIWA protocol. Today the patient seems to be quite calm, not in any distress, she is on room air. And I plan to transfer the patient out of the ICU to a regular medical floor and with a sitter. CBC today is basically unremarkable. Electrolytes are basically normal renal profile is normal Patient was reevaluated today on 04/01/22, patient is doing great, she is on room air, asymptomatic, not in any distress, patient has no more episodes of agitations or delirium. Patient was seen by psychiatry, and made a few recommendations on her medications. pulmonary/critical care, patient could be transferred to the regular medical floor, and we'll see the patient on as-needed basis. Reevaluated today on 04/02/22, patient remains in the ICU as an overflow, doing well, asymptomatic. Discharge planning is in progress. No active issues. Patient had E. coli in the urine but she has no symptoms of UTI, no need to treat. She has asymptomatic bacteriuria. Objective - Vital Signs Vital signs: Vital Signs Temp 98.7 F 04/02/22 08:51 Pulse 120 H 04/02/22 08:51 Resp 18 04/02/22 08:51 BP 118/89 04/02/22 08:51 Pulse Ox 100 04/02/22 08:51 FiO2 Intake & Output 04/01/22 04/02/22 04/02/22 18:59 06:59 18:59 Intake Total 1000 Balance 1000 Weight 50.6 kg Intake: Oral 1000 Other: Voiding Method Toilet Toilet Toilet # Voids 4 6 - Exam Physical Exam: Revealed a 32-year-old female in no distress. HEENT:[Neck is supple.] [No neck masses.] [No thyromegaly.] [No JVD.] Chest: [Clear throughout, no crackles, no rhonchi, no wheezes.] Cardiac Exam: [Normal S1 and S2, no S3 gallop, no murmur.] Abdomen: [Soft, nontender, no megaly, no rebound, no guarding, normal bowel sounds.] Extremities: [No clubbing, no edema, no cyanosis.] Neurological Exam: [No focal neurologic deficit.] Alert and oriented 3. Psychiatric: Normal mood affect and normal mental status examination. Skin: No rash - Labs CBC & Chem 7: 04/02/22 06:29 04/02/22 06:29 Labs: Abnormal Lab Results - Last 24 Hours (Table) 04/02/22 04/02/22 Range/Units 06:29 06:29 RBC 2.80 L (3.80-5.40) m/uL Hgb 9.9 L (11.4-16.0) gm/dL Hct 29.0 L (34.0-46.0) % MCV 103.5 H (80.0-100.0) fL MCH 35.3 H (25.0-35.0) pg Sodium 135 L (137-145) mmol/L BUN 3 L (7-17) mg/dL Creatinine 0.44 L (0.52-1.04) mg/dL Magnesium 1.5 L (1.6-2.3) mg/dL Microbiology - Last 24 Hours (Table) 03/30/22 00:08 Urine Culture - Final Urine,Voided Escherichia coli Assessment and Plan Assessment: impression: Acute alcohol withdrawal acute alcoholic hepatitis history of hepatitis C chronic thrombocytopenia secondary to alcohol abuse Asymptomatic bacteriuria/E. coli. recommendation: Will clear the patient for discharge if cleared by other consultants. Continue CIWA protocol Continue seizure precautions We will see on when necessary basis. Time with Patient: Less than 30
--- NOTE | 2022-04-02 11:05 | P.DS ---
Providers Date of admission: 03/29/22 18:42 Expected date of discharge: 04/02/22 Attending physician: Aminah Mercedes MD Consults: 03/30/22 08:40 Consult Physician Routine Consulting Provider: Carrie Alvarado Consult Reason/Comments: icu management Do you want consulting provider notified?: Yes 03/30/22 09:53 Consult Physician Routine Consulting Provider: Paolo Mcclure Consult Reason/Comments: mental status, etoh withdrawal Do you want consulting provider notified?: Yes Primary care physician: Stated None Hospital Course: Discharge Diagnosis: Acute delirium tremens Acute alcohol withdrawal syndrome Transaminitis Elevated bilirubin History of prior hep C infection Macrocytic anemia Thrombocytopenia Hypokalemia Hypomagnesemia Mild hyponatremia Hospital Course: 32-year-old female with history of alcohol dependence presenting from [place] rehab with delirium tremens. Patient has been tachycardic and tachypneic, with a normal blood pressure, saturating well on room air. Laboratory workup significant for macrocytic anemia, mild hyponatremia, mild hypokalemia, transaminitis, hypomagnesemia. Patient admitted to the ICU for further management. Mental status improved. Psychiatry consulted. Patient was initially on scheduled Haldol, and as needed benzo. Precedex drip discontinued. Patient would prefer to go home prior to doing any sort of intensive outpatient or inpatient substance abuse rehab. Patient to be discharged on thiamine supplements and acamprosate. She had transaminitis, liver ultrasound showed hepatomegaly. Hepatitis C IgG positive. Anemia and thrombocytopenia likely setting chronic alcohol use and liver disease. She'll need follow-up with PCP for hepatitis C quantitative RNA test, results pending in the EMR. Patient seen and examined at bedside. Vital signs reviewed and stable. General: nontoxic, no distress, appears at stated age Derm: warm, dry Head: atraumatic, normocephalic, symmetric Eyes: EOMI, no lid lag, anicteric sclera Mouth: no lip lesion, mucus membranes moist Cardiovascular: S1S2 reg, no murmur Lungs: CTA bilateral, no rhonchi, no rales , no accessory muscle use Abdominal: soft, nontender to palpation, no guarding, no appreciable organomegaly Ext: no gross muscle atrophy, no edema, no contractures Neuro: CN II-XI grossly intact, no focal neuro deficits Psych: Alert, oriented, appropriate affect A total of 36 minutes of time were spent preparing this complex discharge summary. Patient was discharged on 04/02/22 at 11:30. Patient Condition at Discharge: Stable Plan - Discharge Summary New Discharge Prescriptions: New Acamprosate Calcium [Campral] 666 mg PO TID #90 tab Multivitamins, Thera [Multivitamin (formulary)] 1 each PO DAILY #60 tab Thiamine [Vitamin B-1] 100 mg PO DAILY #60 tab Continue Calc/Mag/Zinc/Jocelynn D 1 tab PO TID PRN PRN Reason: CRAMPING Discontinued ondansetron HCL [Zofran] 8 mg PO Q6H PRN PRN Reason: Nausea And Vomiting traZODone HCL [Desyrel] 50 - 150 mg PO HS PRN PRN Reason: Insomnia Multivitamins, Thera [Multivitamin (formulary)] 1 tab PO DAILY Hyoscyamine Sulfate [Levsin] 0.125 mg PO QID PRN PRN Reason: Gi Upset Loperamide HCl [Imodium A-D] 4 mg PO QID PRN PRN Reason: Loose Stool cloNIDine HCL [Catapres] 0.1 mg PO Q4H PRN PRN Reason: Anxiety Tigan 200mg/Ml 200 mg IM Q6H PRN PRN Reason: ACTIVE VOMITING Acetaminophen [Tylenol 8 Hour] 650 mg PO Q4H PRN PRN Reason: Fever And/ Or Pain Thiamine [Vitamin B-1] 100 mg PO DAILY Chlorpheniramine Maleate [Chlor-Trimeton] 4 mg PO Q4H PRN PRN Reason: Allergy Symptoms LORazepam [Ativan] 1 - 2 mg PO Q4H Discharge Medication List Calc/Mag/Zinc/Jocelynn D 1 tab PO TID PRN 03/29/22 [History] Acamprosate Calcium [Campral] 666 mg PO TID #90 tab 04/02/22 [Rx] Multivitamins, Thera [Multivitamin (formulary)] 1 each PO DAILY #60 tab 04/02/22 [Rx] Thiamine [Vitamin B-1] 100 mg PO DAILY #60 tab 04/02/22 [Rx] Follow up Appointment(s)/Referral(s): None,Stated [Primary Care Provider] - 1-2 days Patient Instructions/Handouts: Alcohol Use Disorder (DC) Activity/Diet/Wound Care/Special Instructions: Please see a PCP as soon as possible. Please see substance use rehab right away. Discharge Disposition: HOME SELF-CARE
== END 2022-04-02 12:10 | disposition home or self-care (01) | DRG 897 ==
LOC: EC 15:23 → 2SICU 18:42
PROVIDERS: ADMIT Internal Medicine; ATTEND Internal Medicine
PROC: HZ2ZZZZ Detoxification Services for Substance Abuse Treatment (ICD-10-PCS; principal; 2022-03-29)
DX: F10.231 Alcohol dependence with withdrawal delirium (principal); E87.1 Hypo-osmolality and hyponatremia; E83.42 Hypomagnesemia; K70.10 Alcoholic hepatitis without ascites; B18.2 Chronic viral hepatitis C; R82.71 Bacteriuria; B96.20 Unspecified Escherichia coli [E. coli] as the cause of diseases classified elsewhere; R74.01 Elevation of levels of liver transaminase levels; E87.6 Hypokalemia; F10.232 Alcohol dependence with withdrawal with perceptual disturbance; Y90.0 Blood alcohol level of less than 20 mg/100 ml; D69.6 Thrombocytopenia, unspecified; Z78.1 Physical restraint status; F41.9 Anxiety disorder, unspecified; F17.210 Nicotine dependence, cigarettes, uncomplicated; R00.0 Tachycardia, unspecified; D69.59 Other secondary thrombocytopenia; Z88.6 Allergy status to analgesic agent; Z71.41 Alcohol abuse counseling and surveillance of alcoholic; D75.89 Other specified diseases of blood and blood-forming organs
CPT/HCPCS: 36415; 76705; 80048; 80053; 80074; 80306; 80320; 81001; 81025; 82150; 83690; 83735; 84100; 85025; 87077; 87086; 87186; 87522; 96365; 96366; 96372; 96375; 96376; 99285